=== PATIENT | female | born 1985 | race Caucasian/White ===

== ENCOUNTER 2017-09-17 09:13 | Outpatient (CLI) | payer OTHER ==
--- NOTE | 2017-09-17 10:06 | Non Stress Test Report ---
Non Stress Test Datetime Report Generated by CPN: 09/17/2017 10:06 DEMOGRAPHIC EGA NST: 34.1 INDICATION Indication for Study: Ordered by Provider MONITORING Monitor Explained: Monitor Explained; Test Explained; Patient Verbalized Understanding Time on Monitor: 09/17/2017 09:32 Time off Monitor: 09/17/2017 10:00 NST Duration: 28 NST INTERVENTIONS NST Interventions: PO Hydration; Reposition Patient Physician Notified NST: H Ivpul CNM BABY A: [id number] BABY A Movement : Present Contraction Frequency : x2 Accelerations : 15X15 Decelerations : None Variability : Moderate 6-25bpm NST Review: Meets Criteria for Reactive NST NST Review and Verified By : VALARIE Brewer Results: Reactive NST REPORT Report Trigger: Send Report
== END 2017-09-17 10:10 | disposition home or self-care (01) ==
LOC: LC 09:13
PROVIDERS: ATTEND Obstetrics & Gynecology
PROC: 4A1HXCZ Monitoring of Products of Conception, Cardiac Rate, External Approach (ICD-10-PCS; principal; 2017-09-17)
DX: Z34.93 Encounter for supervision of normal pregnancy, unspecified, third trimester (principal)
CPT/HCPCS: 59025

== ENCOUNTER 2017-10-12 10:17 | Outpatient (CLI) | payer OTHER ==
--- NOTE | 2017-10-12 11:32 | Non Stress Test Report ---
Non Stress Test Datetime Report Generated by CPN: 10/12/2017 11:31 DEMOGRAPHIC EGA NST: 37.5 INDICATION Indication for Study: Ordered by Provider MONITORING Monitor Explained: Monitor Explained; Test Explained; Patient Verbalized Understanding Time on Monitor: 10/12/2017 10:32 Time off Monitor: 10/12/2017 11:23 NST Duration: 51 NST INTERVENTIONS NST Interventions: PO Hydration Physician Notified NST: J Shepherd CNM BABY A: [id number] BABY A Movement : Present Contraction Frequency : Irr FHR Baseline : 120 Accelerations : 15X15 Decelerations : None Variability : Moderate 6-25bpm NST Review: Meets Criteria for Reactive NST NST Review and Verified By : Tylor Booth RNC NST Results: Reactive NST REPORT Report Trigger: Send Report
== END 2017-10-12 11:28 | disposition home or self-care (01) ==
LOC: LC 10:17
PROVIDERS: ATTEND Obstetrics & Gynecology Gynecology
PROC: 4A1HXCZ Monitoring of Products of Conception, Cardiac Rate, External Approach (ICD-10-PCS; principal; 2017-10-12)
DX: O47.1 False labor at or after 37 completed weeks of gestation (principal); Z3A.37 37 weeks gestation of pregnancy
CPT/HCPCS: 59025

== ENCOUNTER 2017-10-18 17:07 | Outpatient (CLI) | payer OTHER ==
[2017-10-18 18:04] LABS: ABSOLUTE BASOPHILS # (AUTO) 0.1 10^3/uL (0.0-0.2); ABSOLUTE EOSINOPHILS # (AUTO) 0.2 10^3/uL (0.0-0.6); ABSOLUTE LYMPHOCYTES (AUTO) 1.3 10^3/uL (0.5-4.7); ABSOLUTE MONOCYTES (AUTO) 0.6 10^3/uL (0.1-1.4); ABSOLUTE NEUT (AUTO) 5.5 10^3/uL (1.7-8.2); BASOPHILS % (AUTO) 0.8 % (0-2); EOSINOPHILS % (AUTO) 2.6 % (0-6); HEMATOCRIT 37.6 % (36.0-47.0); HEMOGLOBIN 12.7 g/dL (12.0-15.5); LYMPHOCYTES % (AUTO) 17.5 % (13-45); MEAN CORPUSCULAR HEMOGLOBIN 29.5 pg (27.0-33.4); MEAN CORPUSCULAR HGB CONC 33.7 g/dL (32.0-36.0); MEAN CORPUSCULAR VOLUME 88 fl (80-97); MONOCYTES % (AUTO) 7.8 % (3-13); PLATELET COUNT 189 10^3/uL (150-450); RED CELL DISTRIBUTION WIDTH 14.7 % (11.5-14.0); SEGMENTED NEUTROPHILS % (AUTO) 71.3 % (42-78); TOTAL CELLS COUNTED % (AUTO) 100 %; WHITE BLOOD COUNT 7.7 10^3/uL (4.0-10.5)
[2017-10-18 18:12] LABS: ALANINE AMINOTRANSFERASE 25 U/L (9-52); ALBUMIN 3.6 g/dL (3.5-5.0); ALKALINE PHOSPHATASE 156 U/L (38-126); ANION GAP 8 (5-19); ASPARTATE AMINO TRANSFERASE 20 U/L (14-36); BILIRUBIN,DIRECT 0.3 mg/dL (0.0-0.4); BILIRUBIN,TOTAL 0.3 mg/dL (0.2-1.3); BLOOD UREA NITROGEN 12 mg/dL (7-20); CALCIUM 9.8 mg/dL (8.4-10.2); CARBON DIOXIDE 22 mmol/L (22-30); CHLORIDE 104 mmol/L (98-107); GLUCOSE 73 mg/dL (75-110); LDH 429 U/L (313-618); POTASSIUM 4.4 mmol/L (3.6-5.0); SODIUM 134.1 mmol/L (137-145); TOTAL PROTEIN 6.5 g/dL (6.3-8.2); URIC ACID 6.2 mg/dL (2.5-6.2)
[2017-10-18 18:17] LABS: APPEARANCE,URINE CLEAR; BILIRUBIN,URINE NEGATIVE (NEGATIVE); COLOR,URINE STRAW; GLUCOSE, URINE NEGATIVE (NEGATIVE); KETONES,URINE NEGATIVE (NEGATIVE); LEUKOCYTE ESTERASE,URINE NEGATIVE (NEGATIVE); NITRITE,URINE NEGATIVE (NEGATIVE); PROTEIN,URINE NEGATIVE (NEGATIVE); URINE SPECIFIC GRAVITY 1.003; UROBILINOGEN,URINE NEGATIVE mg/dL (<2.0)
[2017-10-18 18:20] LABS: LIPASE 110.7 U/L (23-300)
[2017-10-18 18:32] LABS: URINE AMPHETAMINES SCREEN NEGATIVE; URINE BARBITURATES SCREEN NEGATIVE; URINE BENZODIAZEPINES SCREEN NEGATIVE; URINE COCAINE SCREEN NEGATIVE; URINE MARIJUANA (THC) SCREEN NEGATIVE; URINE METHADONE SCREEN NEGATIVE; URINE PHENCYCLIDINE SCREEN NEGATIVE
[2017-10-18 18:34] LABS: UR PRO/CREAT RATIO RESULT 0.7 mg/mg (0.0-0.2); URINE CREATININE 20.7 mg/dL (16-327); URINE PROTEIN 13.9 mg/dL (<12)
--- NOTE | 2017-10-19 10:03 | Non Stress Test Report ---
Non Stress Test Datetime Report Generated by CPN: 10/19/2017 10:02 DEMOGRAPHIC EGA NST: 38.4 INDICATION Indication for Study: Ordered by Provider Indication for Study (NST) Other: lc MONITORING Monitor Explained: Monitor Explained; Test Explained; Patient Verbalized Understanding Time on Monitor: 10/18/2017 17:29 Time off Monitor: 10/18/2017 18:50 NST Duration: 81 NST INTERVENTIONS NST Interventions: PO Hydration; Reposition Patient Physician Notified NST: Dr Menchaca BABY A: [id number] BABY A Movement : Present Contraction Frequency : irreg FHR Baseline : 120 Accelerations : 15X15 Decelerations : None Variability : Moderate 6-25bpm NST Review: Meets Criteria for Reactive NST NST Review and Verified By : VALARIE Dawn Results: Reactive NST REPORT Report Trigger: Send Report
== END 2017-10-18 18:59 | disposition home or self-care (01) ==
LOC: LC 17:07
PROVIDERS: ATTEND Student in an Organized Health Care Education/Training Program
PROC: 4A1HXCZ Monitoring of Products of Conception, Cardiac Rate, External Approach (ICD-10-PCS; principal; 2017-10-18)
DX: O47.1 False labor at or after 37 completed weeks of gestation (principal); O13.3 Gestational [pregnancy-induced] hypertension without significant proteinuria, third trimester; Z3A.38 38 weeks gestation of pregnancy
CPT/HCPCS: 36415; 59025; 80053; 80307; 81001; 82150; 82570; 83615; 83690; 84156; 84550; 85025

== ENCOUNTER 2017-10-19 10:02 | Inpatient (IN) | payer OTHER ==
[2017-10-19 10:43] LABS: APPEARANCE,URINE SLIGHTLY-CLOUDY; BILIRUBIN,URINE NEGATIVE (NEGATIVE); COLOR,URINE YELLOW; GLUCOSE, URINE NEGATIVE (NEGATIVE); KETONES,URINE NEGATIVE (NEGATIVE); LEUKOCYTE ESTERASE,URINE SMALL (NEGATIVE); NITRITE,URINE NEGATIVE (NEGATIVE); PROTEIN,URINE NEGATIVE (NEGATIVE); URINE SPECIFIC GRAVITY 1.005; UROBILINOGEN,URINE NEGATIVE mg/dL (<2.0)
[2017-10-19] MEDS ORDERED: CITRIC ACID/SODIUM CITRATE ORAL SOLN 15 ML UDCUP ONE ×2 (10:59→12:24)
[2017-10-19] MEDS ORDERED: CITRIC ACID/SODIUM CITRATE ORAL SOLN 15 ML UDCUP PO ONE ×2 (10:59→12:22)
[2017-10-19 11:01] LABS: URINE AMPHETAMINES SCREEN NEGATIVE; URINE BARBITURATES SCREEN NEGATIVE; URINE BENZODIAZEPINES SCREEN NEGATIVE; URINE COCAINE SCREEN NEGATIVE; URINE MARIJUANA (THC) SCREEN NEGATIVE; URINE METHADONE SCREEN NEGATIVE; URINE PHENCYCLIDINE SCREEN NEGATIVE
[2017-10-19] MEDS ORDERED: OXYTOCIN 10 UNIT/ML VIAL ONE (12:00)
[2017-10-19] MEDS ORDERED: ACETAMINOPHEN 100 ML IV ONE (12:01)
[2017-10-19] MEDS ORDERED: OXYTOCIN/NORMAL SALINE 20 UNIT/1,000 ML RTUINJ ONE (12:01)
[2017-10-19] MEDS ORDERED: FENTANYL CITRATE INJ/PF 100 MCG/2 ML AMPUL ONE ×2 (12:01→14:50)
[2017-10-19] MEDS ORDERED: ONDANSETRON HCL INJ/PF 4 MG/2 ML SDV ONE (12:01)
[2017-10-19 12:22] LABS: ABSOLUTE EOSINOPHILS # (AUTO) 0.1 10^3/uL (0.0-0.6); ABSOLUTE LYMPHOCYTES (AUTO) 1.2 10^3/uL (0.5-4.7); ABSOLUTE MONOCYTES (AUTO) 0.5 10^3/uL (0.1-1.4); ABSOLUTE NEUT (AUTO) 4.7 10^3/uL (1.7-8.2); BASOPHILS % (AUTO) 0.5 % (0-2); EOSINOPHILS % (AUTO) 2.2 % (0-6); HEMATOCRIT 35.3 % (36.0-47.0); HEMOGLOBIN 11.7 g/dL (12.0-15.5); LYMPHOCYTES % (AUTO) 18.5 % (13-45); MEAN CORPUSCULAR HEMOGLOBIN 29.3 pg (27.0-33.4); MEAN CORPUSCULAR HGB CONC 33.3 g/dL (32.0-36.0); MEAN CORPUSCULAR VOLUME 88 fl (80-97); MONOCYTES % (AUTO) 8.1 % (3-13); PLATELET COUNT 182 10^3/uL (150-450); RED BLOOD COUNT 4.01 10^6/uL (3.72-5.28); RED CELL DISTRIBUTION WIDTH 14.4 % (11.5-14.0); SEGMENTED NEUTROPHILS % (AUTO) 70.7 % (42-78); TOTAL CELLS COUNTED % (AUTO) 100 %; WHITE BLOOD COUNT 6.6 10^3/uL (4.0-10.5)
[2017-10-19] MEDS ORDERED: AZITHROMYCIN INJ 500 MG VIAL IV ONE ×2 (12:22→12:25)
[2017-10-19] MEDS ORDERED: MORPHINE SULFATE 10 MG/ML INJ ONE (14:13)
[2017-10-19] MEDS ORDERED: PROMETHAZINE HCL INJ 25 MG/1 ML VIAL IV PRN (16:03)
[2017-10-19] MEDS ORDERED: DIPH/PERTUSS(ACELL)/TETANUS VAC/PF 0.5 ML SYR (>=10YO) IM PRN (16:03)
[2017-10-19] MEDS ORDERED: ACETAMINOPHEN 100 ML IV PRN (16:03)
[2017-10-19] MEDS ORDERED: ACETAMINOPHEN 325 MG TABLET PO PRN (16:03)
[2017-10-19] MEDS ORDERED: HYDROMORPHONE HCL INJ/PF 2 MG/ML AMPULE IV PRN (16:03)
[2017-10-19] MEDS ORDERED: SIMETHICONE 80 MG TAB.CHEW PO PRN (16:03)
[2017-10-19] MEDS ORDERED: MEASLES,MUMPS&RUBELLA VACC/PF 0.5 ML VIAL SUBCUT PRN (16:03)
[2017-10-19] MEDS ORDERED: OXYCODONE-ACETAMINOPHEN 5-325 MG TABLET PO PRN (16:03)
[2017-10-19] MEDS ORDERED: OXYTOCIN/NORMAL SALINE 20 UNIT/1,000 ML RTUINJ IV PRN (16:03)
--- NOTE | 2017-10-19 16:15 | Admission Physical ---
Datetime Report Generated by CPN: 10/19/2017 16:15 CURRENT ADMISSION Hx Assessment: The History has been Reviewed and is Current Chief Complaint: Scheduled Section Indication for Induction: Not Applicable Indication for Induction: Term, Intrauterine ; No Active Labor Admit Impression- Other: Polyhydramnios Admit Plan: Initiate Section Protocol ALLERGIES Medication Allergies: Yes Medication Allergies: Penicillins/SV/RASH WITH ITCH (10/19/2017) Medication Allergies: Penicillins/SV/RASH WITH ITCH (10/12/2017) Medication Allergies: Penicillins/SV/RASH WITH ITCH (09/17/2017) Medication Allergies: Penicillins/SV/RASH WITH ITCH (04/10/2016) Latex: No Latex Allergies Food Allergies: none Environmental Allergies: none OBSTETRICAL HISTORY EDC: 10/28/2017 00:00 : 8 Para: 3 Term: 1 : 2 SAB: 3 IAB: 0 Ectopic: 0 Livin Cesareans: 0 VBACs: 0 Multiple Births: 0 Gestational Diabetes: No Rh Sensitization: No Incompetent Cervix: No JACOBY: No Infertility: No ART Treatment: No Uterine Anomaly: No IUGR: No Hx Previous C/S: No Macrosomia: Unknown Hx Loss/Stillborn: Yes PIH: No Hx : Yes Placenta Previa/Abruption: No Depression/PP Depression: No PTL/PROM: Yes Post Hemorrhage: No Current Procedures: Ultrasound; NST Obstetrical History Comments: G1 2008 SAB G2 2009 SAB G3 2009 28 wks still born G4 2010 36 wks male G5 2011 37wks male G6 2012 SAB G7 2014 shoulder dystocia G8 current SEE RECORDS Alcohol: No Marijuana : No Cocaine: No Other Illicit Drugs: No Cigarettes: Never Smoker. 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 Surgery: No Heart Disease: No Hosp/Surgery: Yes Autoimmune Disorder: No Anesthetic Complications: No Kidney Disease: No Abnormal Pap Smear: No Neuro/Epilepsy: No Psychiatric Disorders: No Other Medical Diseases: No Hepatitis/Liver Disease: No Significant Family History: No Varicosities/Phlebitis: No Trauma/Violence : No Thyroid Dysfunction: Yes Medical History Comments: Synthroid, d_c 2009, hosp for asthma in 2016 INFECTIOUS HISTORY Gonorrhea: No Genital Herpes: No Chlamydia: No Tuberculosis: No Syphilis: No Hepatitis: No HIV/AIDS Exposure: No Rash or Viral Illness: No HPV: No PHYSICAL EXAM General: Normal HEENT: Deferred Neurologic: Normal Thyroid: Normal Heart: Normal Lungs: Normal Breast: Deferred Back: Normal Abdomen: Normal Genitourinary Exam: Normal Extremities: Normal DTRs: Normal Pelvic Type: Not Done Physical Exam Comments: Hx shoulder dystocia, scheduled for C/s on Polyhydramnios Hypothyroid Desires BTL + GBS, resistance to Clindamycin FETUS A EGA: 38.5 Monitoring: External US FHR- Baseline: 130 Variability: Moderate 6-25bpm Accelerations: 15X15 Admit Comment: Pt came from office with increase in ZANA to 34 since 1 week, scheduled for C/S on , Dr. Pearson discussed C/S and BTL with pt, she agrees to C/S today Cat 1 strip, irregular uc's Last ate at 0800 Seen by MFM PLANS FOR LABOR AND DELIVERY Labor and Delivery: None Pain Management: Spinal Feeding Preference: Breast Benefit of Breast Feed Discussed: Yes Circumcision: Yes INFORMED CONSENT Assignment: Carri Pearson MD Signature: with User ID: [email or web address] : with User ID: [email or web address]
[2017-10-19] MEDS: DOCUSATE SODIUM 100 MG CAPSULE PO SCH (17:07)
[2017-10-19] MEDS: OXYCODONE-ACETAMINOPHEN 5-325 MG TABLET PO PRN (17:07)
[2017-10-19] MEDS: IBUPROFEN 800 MG TABLET PO SCH (17:13)
[2017-10-19] MEDS ORDERED: INFLUENZA ADLT QUAD (36MOS+) 2017-18 VAC 0.5 ML SYR IM PRN (17:35)
[2017-10-19] MEDS: KETOROLAC TROMETHAMINE INJ/PF 30 MG/1 ML SDV IV SCH (22:44)
[2017-10-20] MEDS: IBUPROFEN 800 MG TABLET PO SCH ×5 (00:32→23:54)
--- NOTE | 2017-10-20 02:04 | OPERATIVE REPORT E ---
Operative Report NAME: MAMIE SERRANO : 1985 AGE: 31Y DATE OF SURGERY: 10/19/2017 ROOM: 226 PREOPERATIVE DIAGNOSIS: 1. Intrauterine at 38 weeks and 5 days. 2. Polyhydramnios. 3. Undesired fertility. 4. History of shoulder dystocia. POSTOPERATIVE DIAGNOSIS: 1. Intrauterine at 38 weeks and 5 days. 2. Polyhydramnios. 3. Undesired fertility. 4. History of shoulder dystocia. OPERATION: 1. Low-transverse hysterotomy section. 2. Boles tubal ligation. SURGEON: NGUYEN MENDEZ M.D. ANESTHESIA: Dr. Hay with a spinal. FINDINGS: Male , cephalic presentation, with Apgars of 9/9, weight 9 pounds 3 ounces. ESTIMATED BLOOD LOSS: 600 mL SPECIMENS REMOVED: Bilateral fallopian tubes and placenta. PROCEDURE IN DETAIL: The patient was taken to the operating room, prepared and draped in normal sterile fashion in the supine position with a leftward tilt. Transverse skin incision was made with a scalpel and carried through to the underlying layer of fascia. With the same scalpel, the fascia was excised in the midline and extended laterally with Mayos. The rectus muscle was dissected from the fascia bluntly. The rectus muscle was divided. Peritoneal cavity was entered bluntly. The bladder blade was inserted. The hysterotomy was nicked with a scalpel and extended laterally with surgeon finger fracture. The infant was then delivered atraumatically. The nose and mouth were suctioned with a suction bulb, the cord was clamped, and the infant was handed off to awaiting corporate account executive. The cord blood was collected. The placenta was removed manually. The uterus was exteriorized and cleared of clot and debris. The hysterotomy was closed with 0 Vicryl in a running locked fashion. A second layer of the same suture was used to imbricate to ensure hemostasis. Beginning with the right fallopian tube, the fallopian tube was grasped with a Maverick, and the mesosalpinx was divided with a Bovie. A large, 3-cm section of the fallopian tube was tied off with 2 pieces of 2-0 chromic, and the intermediate section was then ligated with Metzenbaums. The pedicles remained hemostatic with the Bovie. This procedure was repeated on the left fallopian tube without difficulty. The uterus was then returned to the abdomen. The peritoneal cavity was cleared of clot and debris. The pedicles were reinspected, and they were found to be hemostatic as well as the hysterotomy. The rectus muscle and peritoneum were reapproximated with a mattress suture of 2-0 chromic. The fascia was closed with 0 Vicryl. The subcutaneous layer was closed with plain catgut, and the skin was closed with 4-0 Vicryl. The patient tolerated the procedure well. Sponge, lap, and needle counts were correct x2. The patient was taken to recovery in stable condition. DICTATING PHYSICIAN: NGUYEN MENDEZ M.D. [id number] PHY#: [id number] ID: [id number] JOB#: [id number] ACCT: [id number] cc:NGUYEN MENDEZ M.D. > MTDD
[2017-10-20] MEDS: KETOROLAC TROMETHAMINE INJ/PF 30 MG/1 ML SDV IV SCH ×2 (05:12→14:11)
[2017-10-20 08:55] LABS: HEMATOCRIT 33.1 % (36.0-47.0); HEMOGLOBIN 11.1 g/dL (12.0-15.5); MEAN CORPUSCULAR HEMOGLOBIN 29.3 pg (27.0-33.4); MEAN CORPUSCULAR HGB CONC 33.5 g/dL (32.0-36.0); MEAN CORPUSCULAR VOLUME 88 fl (80-97); PLATELET COUNT 168 10^3/uL (150-450); RED BLOOD COUNT 3.78 10^6/uL (3.72-5.28); RED CELL DISTRIBUTION WIDTH 14.1 % (11.5-14.0); WHITE BLOOD COUNT 12.2 10^3/uL (4.0-10.5)
--- NOTE | 2017-10-20 08:58 | PDOC PROGRESS REPORT ---
Subjective-OB Progress Note for:: 10/20/17 Subjective: tolerating po intake, pain well controlled, denies f/c/v/n, bonding well with baby Physical Exam (OB) Vital Signs: Temp Pulse Resp BP Pulse Ox 98.3 F 72 16 127/77 H 96 10/20/17 00:57 10/20/17 00:57 10/20/17 00:57 10/20/17 00:57 10/20/17 00:57 Intake & Output 10/19/17 10/20/17 10/21/17 06:59 06:59 06:59 Intake Total 1400 Output Total 2200 Balance -800 Weight 96 kg - General General Appearance: Appears well, Alert - Dressing Removed: No - op site Incision: Dressing Closure Type: Sutures - Bilateral Tubal Ligation Dressing Removed: Yes Site: Dressing - Lochia Lochia Amount: Small 10-25 ml Lochia Color: Rubra/Red - Abdomen Description: Soft, Round Hernia Present: No Bowel Sounds: Normoactive Flatus Presence: Present Stool: No Fundal Description: Firm, Midline Fundal Height: u/u - u/2 - HEENT Head: Normocephalic, Atraumatic - Respiratory Respiratory Status: No respiratory distress Chest Status: Nontender Breath sounds: Clear. negative: Rhonchi Chest Palpation: Normal - Cardiovascular Rhythm: Regular Heart Sounds: Normal auscultation, S1 appreciated, S2 appreciated - Abdominal Inspection: Normal Distension: No distension Tenderness: Nontender Organomegaly: No organomegaly - Extremities Upper extremity: Normal inspection Lower extremities: Normal inspection Calf: Normal, Nontender - Neurological Cognition: Normal Orientation: AAOx4, Alert, Oriented to person, Oriented to place, Oriented to time Speech: Normal - Psychological Associated symptoms: Normal affect - Skin Skin Temperature: Warm Skin Moisture: Dry Objective-Diagnostic Laboratory: 10/19/17 11:53 10/19/17 10/19/17 10/19/17 10:10 11:53 11:53 WBC 6.6 RBC 4.01 Hgb 11.7 L Hct 35.3 L MCV 88 MCH 29.3 MCHC 33.3 RDW 14.4 H Plt Count 182 Seg Neutrophils % 70.7 Lymphocytes % 18.5 Monocytes % 8.1 Eosinophils % 2.2 Basophils % 0.5 Absolute Neutrophils 4.7 Absolute Lymphocytes 1.2 Absolute Monocytes 0.5 Absolute Eosinophils 0.1 Absolute Basophils 0.0 Urine Color YELLOW Urine Appearance SLIGHTLY-CLOUDY Urine pH 6.0 Ur Specific [place] 1.005 Urine Protein NEGATIVE Urine Glucose (UA) NEGATIVE Urine Ketones NEGATIVE Urine Blood NEGATIVE Urine Nitrite NEGATIVE Ur Leukocyte Esterase SMALL H Blood Type A NEGATIVE Antibody Screen POSITIVE Assessment and Plan(PN) - Assessment and Plan (1) Single delivery by section Is this a current diagnosis for this admission?: Yes Plan: tolerating advance of care without difficulty, continue with advance of care, anticipate discharge tomorrow (2) Polyhydramnios Qualifiers: Fetus number: single or unspecified fetus Trimester: third trimester Qualified Code(s): O40.3XX0 - Polyhydramnios, third trimester, not applicable or unspecified Is this a current diagnosis for this admission?: Yes Plan: ZANA increased within 24 hours and patient underwent section yesterday due to severe polyhydramnios (3) Sterilization Is this a current diagnosis for this admission?: Yes Plan: s/p sterilization. BTL during section (4) History of shoulder dystocia in prior Is this a current diagnosis for this admission?: Yes Plan: Pt desired primary section due to h/o shoulder dystocia Plan:: Anticipate discharge to home tomorrow - Time Spent with Patient Time with patient: 15-25 minutes Critical Time spent with patient: Less than 15 minutes Medications reviewed and adjusted accordingly: Yes - Disposition Anticipated Discharge: Home Within: within 48 hours Disposition: Anticpate Discharge to home tomorrow
[2017-10-20] MEDS: PRENATAL VITAMIN W DHA CAPSULE PO SCH (10:41)
[2017-10-20] MEDS: DOCUSATE SODIUM 100 MG CAPSULE PO SCH ×2 (10:41→17:22)
[2017-10-20] MEDS: OXYCODONE-ACETAMINOPHEN 5-325 MG TABLET PO PRN ×2 (14:08→21:34)
[2017-10-21] MEDS: IBUPROFEN 800 MG TABLET PO SCH ×2 (06:30→12:51)
--- NOTE | 2017-10-21 06:55 | Delivery Summary ---
Del Sum A-C Datetime Report Generated by CPN: 10/21/2017 06:55 DELIVERY PERSONNEL DELIVERY PERSONNEL: [id number] Delivery Doctor:: Carri Pearson MD Anesthesiologist:: Junaid Hay MD MISSION SUPPORT SPECIALIST:: jaymie garrison strap buckler Labor and Delivery Nurse:: Geetha Tovar RNelectronic court recorder Nurse:: Latanya Sandoval RN Insulator Helper:: Geetha Tovar RN Neonatal Nurse Practitioner:: GAMALIEL Greene Nursery Nurse:: Delores Avitia RN Nursery Nurse:: jabari ruffin rn Student Observers:: jabari valladares m. moldanado Post Secondary Professional/SPECIAL LOAN OFFICER: [facility] Post Secondary Professional/SPECIAL LOAN OFFICER: Gunjan Ceballos, SOFTWARE PROJECT LEAD MATERNAL INFORMATION Delivery Anesthesia: Spinal Medications After Delivery: Pitocin Bolus-Please Comment Estimated Blood Loss (ml): 600 Maternal Complications: None LABOR SUMMARY EDC: 10/28/2017 00:00 No. Babies in Womb: 1 Attempted: No Labor Anesthesia: None LABOR INFORMATION Reason for Induction: Not Applicable Oxytocin: N/A Group B Beta Strep: Positive- clinda resistant Antibiotics # of Doses: 1 Antibiotics Time of Last Dose: 1237 Name of Antibiotic Given: Azithromycin Steroids Given: None Reason Steroids Not Administered: Not Applicable MEMBRANES Membranes Rupture Method: Artificial Rupture of Membranes: 10/19/2017 13:10 Length of Rupture (hr): 0.02 Amniotic Fluid Color: Clear Amniotic Fluid Amount: Large Amniotic Fluid Odor: Normal STAGES OF LABOR Stage 3 hr: 0 Stage 3 min: 0 VAGINAL DELIVERY Episiotomy: None Laceration #1: None Laceration Extension #1: N/A Other Laceration: none Laceration Repair: Not Applicable Sponge Count Correct: N/A Sharps Count Correct: N/A CSECTION DELIVERY Primary Indication: Other Other Primary Indication: polyhydramnios, h/o traumatic Secondary Indication: N/A CSection Urgency: Non-Scheduled CSection Incidence: Primary Labor: No Labor Elective: Nonelective CSection Incision: Lower Uterine Transverse Other Sterilization Procedure: BTL BABY A INFORMATION Infant Delivery Date/Time: 10/19/2017 13:11 Method of Delivery: Born in Route : No : N/A Forceps: N/A Vacuum Extraction: N/A Shoulder Dystocia : No PRESENTATION/POSITION BABY A Presentation: Cephalic Cephalic Presentation: Vertex Breech Presentation: N/A PLACENTA INFORMATION BABY A Placenta Delivery Time : 10/19/2017 13:11 Placenta Method of Delivery: Manual Removal Placenta Status: Delivered SCORES BABY A Heart Rate 1 min: >100 bpm Resp Effort 1 min: Good Cry Reflex Irritability 1 min: Cough or Sneeze or Pulls Away Muscle Tone 1 min: Active Motion Color 1 min: Blue/Pale Resuscitation Effort 1 min: Tactile Stimulation SCORE 1 MIN: 8 Heart Rate 5 min: >100 bpm Resp Effort 5 min: Good Cry Reflex Irritability 5 min: Cough or Sneeze or Pulls Away Muscle Tone 5 min: Active Motion Color 5 min: Body Casa, Extremities Blue Resuscitation Effort 5 min: Tactile Stimulation SCORE 5 MIN: 9 INFANT INFORMATION BABY A Gestational Age at Delivery: 38.5 Gestational Status: Early Term- 37- 38.6 Weeks Infant Outcome : Liveborn Infant Condition : Stable Infant Sex: Male IDENTIFICATION BABY A Infant Verification Date/Time: 10/19/2017 13:30 ID Band Number: [id number] Mother's Name Verified: Yes RN Verifying Infant: alejandra sandoval rn Additional Verifying Personnel: zeinab tovar rn WEIGHT/LENGTH BABY A Birthweight (gm): 4175 Weight (lb): 9 Weight (oz): 3 Length (in): 21.00 Length (cm): 53.34 CORD INFORMATION BABY A No. Cord Vessels: 3 Nuchal Cord : N/A Cord Blood Taken: Yes-For Eval (Mom's Blood Type - or O+) Suction: Mouth; Nose ASSESSMENT BABY A Skin to Skin: Yes BABY B INFORMATION : N/A
[2017-10-21] MEDS: DOCUSATE SODIUM 100 MG CAPSULE PO SCH (09:50)
[2017-10-21] MEDS: PRENATAL VITAMIN W DHA CAPSULE PO SCH (09:50)
--- NOTE | 2017-10-21 12:49 | PDOC DISCHARGE SUMMARY ---
Final Diagnosis Discharge Date: 10/21/17 - Final Diagnosis (1) Single delivery by section Is this a current diagnosis for this admission?: Yes (2) Polyhydramnios Is this a current diagnosis for this admission?: Yes (3) Sterilization Is this a current diagnosis for this admission?: Yes (4) History of shoulder dystocia in prior Is this a current diagnosis for this admission?: Yes Discharge Data - Discharge Medication Prescriptions: Oxycodone HCl/Acetaminophen [Percocet 5-325 mg Tablet] 1 tab PO Q4HP PRN #20 tablet PRN Reason: Ibuprofen [Motrin 800 mg Tablet] 800 mg PO Q8HP PRN #60 tablet PRN Reason: Docusate Sodium [Colace 100 mg Capsule] 100 mg PO BID #60 capsule Home Medications: Levothyroxine Sodium [Synthroid] 100 mcg PO DAILY 04/10/16 Vit,Calc76/Iron/Folic [Prenatabs Rx Tablet] 1 tab PO DAILY 09/17/17 Docusate Sodium [Colace 100 mg Capsule] 100 mg PO BID #60 capsule 10/21/17 Ibuprofen [Motrin 800 mg Tablet] 800 mg PO Q8HP PRN #60 tablet 10/21/17 Oxycodone HCl/Acetaminophen [Percocet 5-325 mg Tablet] 1 tab PO Q4HP PRN #20 tablet 10/21/17 Reason(s) for Admission: Ceasarean Section-Primary, Tubal Ligation Procedures: NST, Ultrasound Intrapartum Procedure(s): : Low Cervical, Transverse - Diagnosis Test Laboratory: Temp Pulse Resp BP Pulse Ox 98.1 F 82 15 136/78 H 98 10/21/17 08:22 10/21/17 08:22 10/21/17 08:22 10/21/17 08:22 10/21/17 08:22 10/19/17 10/19/17 10/20/17 10:10 11:53 08:08 RBC 4.01 3.78 Hgb 11.7 L 11.1 L Hct 35.3 L 33.1 L Urine Opiates Screen NEGATIVE - Discharge information/Instructions Discharge Activity: Activity As Tolerated, Balance Activity w/Rest, No Driving, No Lifting Over 10 Pounds, No Lifting/Push/Pulling, Pelvic Rest, Slowly Increase Activity, No tub bath Discharge Diet: As Tolerated, Regular Disposition: HOME, SELF-CARE Follow up with: [facility] in: 1, Weeks - incision check
[2017-10-21 13:37] VITALS: BP 128/69
== END 2017-10-21 14:23 | disposition home or self-care (01) | DRG 766 ==
LOC: LC 10:02 → LR 11:01 → 2S 16:13
PROVIDERS: ADMIT Obstetrics & Gynecology; ATTEND Obstetrics & Gynecology
PROC: 10D00Z1 Extraction of Products of Conception, Low, Open Approach (ICD-10-PCS; principal; 2017-10-19)
PROC: 0UB70ZZ Excision of Bilateral Fallopian Tubes, Open Approach (ICD-10-PCS; 2017-10-19)
PROC: 4A1HXCZ Monitoring of Products of Conception, Cardiac Rate, External Approach (ICD-10-PCS; 2017-10-19)
PROC: 3E0234Z Introduction of Serum, Toxoid and Vaccine into Muscle, Percutaneous Approach (ICD-10-PCS; 2017-10-21)
PROC: 3E0234Z Introduction of Serum, Toxoid and Vaccine into Muscle, Percutaneous Approach (ICD-10-PCS; 2017-10-21)
DX: O40.3XX0 Polyhydramnios, third trimester, not applicable or unspecified (principal); O26.893 Other specified pregnancy related conditions, third trimester; O99.513 Diseases of the respiratory system complicating pregnancy, third trimester; J45.909 Unspecified asthma, uncomplicated; O99.284 Endocrine, nutritional and metabolic diseases complicating childbirth; E07.9 Disorder of thyroid, unspecified; O99.824 Streptococcus B carrier state complicating childbirth; Z67.11 Type A blood, Rh negative; Z23 Encounter for immunization; Z30.2 Encounter for sterilization; Z88.0 Allergy status to penicillin; Z3A.38 38 weeks gestation of pregnancy; Z37.0 Single live birth
CPT/HCPCS: 1961; 36415; 80307; 81005; 85025; 85027; 85461; 86592; 86850; 86870; 86900; 86901; 88302; 88307; 90686; 94799; J0131; J0456; J1170; J1885; J2270; J2405; J2550; J2590; J2790; J3010; J3490